=== PATIENT | female | born 1940 | race Caucasian/White ===

== ENCOUNTER 2018-07-26 20:27 | Inpatient (IN) | payer MEDICARE, MEDICAID ==
[~2018-07-26] VITALS: Ht 160 cm; Wt 70.6 kg
[2018-07-26] MEDS ORDERED: SODIUM CHLORIDE FLUSH 10ML SYR IVF ONE (20:30)
[2018-07-26] MEDS ORDERED: SODIUM CHLORIDE 0.9% 1,000ML IVBOLUS ONE ×2 (21:00→23:00)
[2018-07-26 21:12] LABS: MEAN CORPUSCULAR HEMOGLOBIN 31.1 pg (27.0-34.8); MEAN CORPUSCULAR HGB CONC 33.7 g/dL (32.4-35.8); MEAN CORPUSCULAR VOLUME 92.5 fL (80-100); MEAN PLATELET VOLUME 7.5 fL (7.4-10.4); PLATELET COUNT 386 x10^3/uL (130-400); RED BLOOD COUNT 4.72 x10^6/uL (3.82-5.3); RED CELL DISTRIBUTION WIDTH 14.1 % (9.6-15.2)
[2018-07-26 21:16] LABS: PROTHROMBIN TIME 10.4 Seconds (9.6-11.5)
[2018-07-26 21:17] LABS: ALANINE AMINOTRANSFERASE 28 U/L (12-78); ALBUMIN 2.8 g/dL (3.4-5.0); ANION GAP 8 mmol/L (5-15); CALCIUM 8.7 mg/dL (8.5-10.1); CHLORIDE 106 mmol/L (98-107); CREATININE 0.95 mg/dL (0.55-1.02)
[2018-07-26 21:20] LABS: ALKALINE PHOSPHATASE 218 U/L (45-117); BILIRUBIN,TOTAL 0.5 mg/dL (0.2-1.0)
[2018-07-26] MEDS ORDERED: ACETAMINOPHEN 325 MG TABLET PO ONE (22:00)
[2018-07-26 22:04] LABS: BASOPHILS # (AUTO) 0.09 x10^3/uL (0-0.1); BASOPHILS % (AUTO) 1 % (0-1); EOSINOPHILS # (AUTO) 0.03 x10^3/uL (0-0.4); EOSINOPHILS % (AUTO) 0 % (1-7); LYMPHOCYTES # (AUTO) 2.65 x10^3/uL (1-3.4); LYMPHOCYTES % (AUTO) 14 % (22-44); MD SCAN; MONOCYTES # (AUTO) 0.72 x10^3/uL (0.2-0.8); MONOCYTES % (AUTO) 4 % (2-9); NEUTROPHILS # (AUTO) 15.06 x10^3/uL (1.8-6.8); NEUTROPHILS % (AUTO) 81 % (42-75)
[2018-07-26] MEDS ORDERED: ACETAMINOPHEN 325 MG TABLET ONE (22:19)
[2018-07-26] MEDS ORDERED: CEFTRIAXONE 1,000 MG in SODIUM CHLORIDE 0.9% 50 ML IV ONE (22:30)
[2018-07-26] MEDS ORDERED: CEFTRIAXONE PMX 1GM/50ML 50 ML ONE (22:56)
[2018-07-26 23:04] LABS: CULTURE INDICATED? YES; MICROSCOPIC INDICATED
[2018-07-26] MEDS ORDERED: SODIUM CHLORIDE 0.9% 1,000 ML IV ONE (23:30)
[2018-07-26] MEDS ORDERED: SODIUM CHLORIDE 0.9% 1,000 ML IV SCH (23:40)
[2018-07-27] VITALS (8 sets, daily range): BP systolic 99–135; BP diastolic 60–83
[2018-07-27] MEDS ORDERED: DEXTROSE 50%, 50ML SYRINGE IVPush PRN
[2018-07-27] MEDS ORDERED: ONDANSETRON 2MG/ML, 2ML IVPush PRN
[2018-07-27] MEDS ORDERED: DEXTROSE 4 GM TAB.CHEW PO PRN
[2018-07-27] MEDS ORDERED: HEPARIN 5,000 UNITS/ML, 1ML SQ SCH
[2018-07-27] MEDS ORDERED: LABETALOL 5MG/ML, 20ML IVPush PRN
[2018-07-27] MEDS ORDERED: GLUCAGON 1 MG IM PRN
[2018-07-27] MEDS ORDERED: BISACODYL 10 MG SUPP PR PRN
[2018-07-27] MEDS ORDERED: PHARMACY MAY ADJ FOR RENAL FX MC SCH
[2018-07-27] MEDS ORDERED: METRONIDAZOLE PMX 500MG/100ML 100 ML IV SCH (01:00)
[2018-07-27] MEDS ORDERED: DILTIAZEM 30 MG TABLET ONE ×2 (01:02→08:47)
[2018-07-27] MEDS: SODIUM CHLORIDE FLUSH 10ML SYR IVF SCH ×3 (01:10→21:22)
[2018-07-27] MEDS: DILTIAZEM 60 MG TABLET PO SCH ×4 (01:11→21:21)
[2018-07-27] MEDS ORDERED: CITA20TA9 PO (01:53)
[2018-07-27] MEDS ORDERED: CARB1TAB47 PO (01:53)
[2018-07-27] MEDS ORDERED: CHOL200059 PO (01:53)
[2018-07-27] MEDS ORDERED: ALEN70TA3 PO (01:53)
[2018-07-27] MEDS ORDERED: CYAN500L4 PO (01:53)
[2018-07-27] MEDS ORDERED: CALC500T PO (01:53)
[2018-07-27] MEDS ORDERED: GEMF600T PO (01:53)
[2018-07-27] MEDS ORDERED: ACET325C5 PO (01:53)
[2018-07-27] MEDS ORDERED: METF500T PO (01:53)
[2018-07-27] MEDS ORDERED: GABA300C10 PO (01:53)
[2018-07-27] MEDS ORDERED: OMEP20CA14 PO (01:53)
[2018-07-27] MEDS ORDERED: TEMPLATE NON-FORMULARY MED. (Gabapentin** 300 MG) PO SCH (04:00)
[2018-07-27] MEDS: CARBIDOPA/LEVODOPA 25 MG/100 MG TABLET PO SCH ×4 (04:20→21:21)
[2018-07-27 05:41] LABS: MEAN CORPUSCULAR HEMOGLOBIN 30.7 pg (27.0-34.8); MEAN CORPUSCULAR HGB CONC 33.2 g/dL (32.4-35.8); MEAN CORPUSCULAR VOLUME 92.3 fL (80-100); MEAN PLATELET VOLUME 7.7 fL (7.4-10.4); PLATELET COUNT 310 x10^3/uL (130-400); RED BLOOD COUNT 4.68 x10^6/uL (3.82-5.3); RED CELL DISTRIBUTION WIDTH 14.4 % (9.6-15.2)
[2018-07-27 05:46] LABS: ANION GAP 9 mmol/L (5-15); CALCIUM 7.8 mg/dL (8.5-10.1); CHLORIDE 110 mmol/L (98-107)
[2018-07-27 05:47] LABS: CREATININE 1.01 mg/dL (0.55-1.02)
[2018-07-27] MEDS ORDERED: ACETAMINOPHEN 325 MG TABLET PO PRN ×2 (06:00→11:30)
[2018-07-27 06:25] LABS: MD YES
[2018-07-27 06:28] LABS: <PLATELET ESTIMATE> ADEQUATE; <PLT MORPHOLOGY> NORMAL PLT MORPH; <RBC MORPHOLOGY> NORMAL; BAND#(MANUAL) 2.49 x10^3/uL; BANDS%(MANUAL) 10 % (0-7); LYMPH#(MANUAL) 3.98 x10^3/uL (1-3.4); LYMPHS% (MANUAL) 16 % (22-44); MONOS% (MANUAL) 4 % (2-9); SEG#(MANUAL) 17.43 x10^3/uL (1.8-6.8); SEGS% (MANUAL) 70 % (42-75)
[2018-07-27] MEDS: GEMFIBROZIL 600 MG TABLET PO SCH ×2 (07:30→16:30)
[2018-07-27] MEDS: SODIUM CHLORIDE 0.45% 1,000 ML IV SCH ×3 (07:30→22:35)
[2018-07-27] MEDS: OMEPRAZOLE 20 MG CAPSULE.DR PO SCH (09:00)
[2018-07-27] MEDS: CYANOCOBALAMIN 1,000 MCG TABLET PO SCH (09:00)
[2018-07-27] MEDS: GABAPENTIN 300 MG CAPSULE PO SCH ×3 (09:00→21:21)
[2018-07-27] MEDS: CHOLECALCIFEROL 1,000 UNIT TABLET PO SCH (09:00)
[2018-07-27] MEDS ORDERED: SODIUM CHLORIDE 0.9% 1,000ML IVBOLUS ONE (09:00)
[2018-07-27] MEDS ORDERED: PROPOFOL 10 MG/ML, 20ML ONE (10:53)
[2018-07-27] MEDS ORDERED: PHENYLEPHRINE 10 MG/ML ONE (10:53)
[2018-07-27] MEDS ORDERED: SUCCINYLCHOLINE 20 MG/ML, 10ML ONE (10:53)
[2018-07-27] MEDS ORDERED: ROCURONIUM 10 MG/ML,10ML ONE (10:53)
[2018-07-27] MEDS ORDERED: FENTANYL PF 100 MCG/2ML ONE (11:17)
[2018-07-27] MEDS ORDERED: OXYcodone 5 MG/5 ML ORAL.SOL UDC PO PRN (11:30)
[2018-07-27] MEDS ORDERED: METOPROLOL 1 MG/ML, 5ML IV PRN (11:30)
[2018-07-27] MEDS ORDERED: FENTANYL PF 100 MCG/2ML IV PRN (11:30)
[2018-07-27] MEDS ORDERED: PROMETHAZINE 12.5 MG SUPP PR PRN (11:30)
[2018-07-27] MEDS ORDERED: MEPERIDINE/PF 25MG/0.5ML IVPush PRN (11:30)
[2018-07-27] MEDS ORDERED: KETOROLAC 30 MG/1 ML IV PRN (11:30)
[2018-07-27] MEDS ORDERED: ALBUTEROL SULFATE 2.5 MG/3 ML NPPB PRN (11:30)
[2018-07-27] MEDS ORDERED: hydrALAzine 20 MG/ML, 1ML IV PRN (11:30)
[2018-07-27] MEDS ORDERED: HYDROmorphone 1 MG/ML, 1ML IV PRN (11:30)
[2018-07-27] MEDS ORDERED: MIDAZOLAM 1 MG/ML, 2ML IV PRN (11:30)
[2018-07-27] MEDS ORDERED: LABETALOL 5MG/ML, 20ML IV PRN (11:30)
[2018-07-27] MEDS ORDERED: PROMETHAZINE 25 MG/ML, 1ML IV PRN (11:30)
[2018-07-27] MEDS ORDERED: EPHEDRINE 50 MG/ML, 1ML IVPush PRN (11:30)
[2018-07-27] MEDS ORDERED: MORPHINE SULFATE 4 MG/ML, 1ML IVPush PRN (11:30)
[2018-07-27] MEDS ORDERED: OMNIPAQUE 350 MG/ML, 50 ML BOTTLE ONE (11:59)
[2018-07-27] MEDS: ACETAMINOPHEN 325 MG TABLET PO PRN (21:21)
[2018-07-27] MEDS: CEFTRIAXONE 2 GM in SODIUM CHLORIDE 0.9% 50 ML IV SCH (22:35)
[2018-07-28 00:58] VITALS: BP 108/67
[2018-07-28 04:57] LABS: MEAN CORPUSCULAR HEMOGLOBIN 30.4 pg (27.0-34.8); MEAN CORPUSCULAR HGB CONC 32.6 g/dL (32.4-35.8); MEAN CORPUSCULAR VOLUME 93.3 fL (80-100); MEAN PLATELET VOLUME 7.6 fL (7.4-10.4); PLATELET COUNT 306 x10^3/uL (130-400); RED BLOOD COUNT 3.67 x10^6/uL (3.82-5.3); RED CELL DISTRIBUTION WIDTH 14.4 % (9.6-15.2)
[2018-07-28 05:16] LABS: ALANINE AMINOTRANSFERASE 7 U/L (12-78); ALBUMIN 1.9 g/dL (3.4-5.0); ANION GAP 10 mmol/L (5-15); CALCIUM 7.3 mg/dL (8.5-10.1); CHLORIDE 110 mmol/L (98-107)
[2018-07-28 05:18] LABS: ALKALINE PHOSPHATASE 121 U/L (45-117); BILIRUBIN,TOTAL 0.2 mg/dL (0.2-1.0); TOTAL PROTEIN 5.8 g/dL (6.4-8.2)
[2018-07-28 05:24] LABS: BASOPHILS # (AUTO) 0.08 x10^3/uL (0-0.1); BASOPHILS % (AUTO) 0 % (0-1); EOSINOPHILS # (AUTO) 0.21 x10^3/uL (0-0.4); EOSINOPHILS % (AUTO) 1 % (1-7); LYMPHOCYTES % (AUTO) 18 % (22-44); MD SCAN; MONOCYTES # (AUTO) 1.82 x10^3/uL (0.2-0.8); MONOCYTES % (AUTO) 9 % (2-9); NEUTROPHILS # (AUTO) 15.21 x10^3/uL (1.8-6.8); NEUTROPHILS % (AUTO) 72 % (42-75)
[2018-07-28] MEDS: SODIUM CHLORIDE 0.45% 1,000 ML IV SCH ×3 (06:21→15:50)
[2018-07-28] MEDS ORDERED: MAGNESIUM SULFATE PMX 2GM/50ML 50 ML IV ONE (08:30)
[2018-07-28] MEDS: SODIUM CHLORIDE FLUSH 10ML SYR IVF SCH ×2 (09:00→21:00)
[2018-07-28] MEDS: OMEPRAZOLE 20 MG CAPSULE.DR PO SCH (09:15)
[2018-07-28] MEDS: CARBIDOPA/LEVODOPA 25 MG/100 MG TABLET PO SCH ×3 (09:16→21:47)
[2018-07-28] MEDS: CHOLECALCIFEROL 1,000 UNIT TABLET PO SCH (09:16)
[2018-07-28] MEDS: GEMFIBROZIL 600 MG TABLET PO SCH ×2 (09:16→15:50)
[2018-07-28] MEDS: CYANOCOBALAMIN 1,000 MCG TABLET PO SCH (09:16)
[2018-07-28] MEDS: GABAPENTIN 300 MG CAPSULE PO SCH ×3 (09:16→21:46)
[2018-07-28 09:28] VITALS: BP 116/73
[2018-07-28] MEDS ORDERED: POTASSIUM CHLORIDE 20 MEQ TAB.ER.PRT PO ONE (11:30)
[2018-07-28 12:24] VITALS: BP 100/59
[2018-07-28 19:14] VITALS: BP 116/58
[2018-07-28] MEDS: CEFTRIAXONE 2 GM in SODIUM CHLORIDE 0.9% 50 ML IV SCH (22:21)
[2018-07-29] MEDS: SODIUM CHLORIDE 0.45% 1,000 ML IV SCH ×3 (00:57→12:35)
[2018-07-29 03:36] VITALS: BP 115/68
[2018-07-29 05:15] LABS: ALBUMIN 1.9 g/dL (3.4-5.0); ANION GAP 10 mmol/L (5-15); CALCIUM 7.6 mg/dL (8.5-10.1); CHLORIDE 110 mmol/L (98-107)
[2018-07-29 05:19] LABS: ALKALINE PHOSPHATASE 114 U/L (45-117); BILIRUBIN,TOTAL 0.2 mg/dL (0.2-1.0); CREATININE 1.06 mg/dL (0.55-1.02)
[2018-07-29 05:26] LABS: MEAN CORPUSCULAR HEMOGLOBIN 31.3 pg (27.0-34.8); MEAN CORPUSCULAR HGB CONC 33.5 g/dL (32.4-35.8); MEAN CORPUSCULAR VOLUME 93.5 fL (80-100); MEAN PLATELET VOLUME 7.8 fL (7.4-10.4); PLATELET COUNT 288 x10^3/uL (130-400); RED BLOOD COUNT 3.71 x10^6/uL (3.82-5.3); RED CELL DISTRIBUTION WIDTH 14.6 % (9.6-15.2)
[2018-07-29 05:38] LABS: ALANINE AMINOTRANSFERASE < 6 U/L (12-78)
[2018-07-29 06:21] LABS: BASOPHILS # (AUTO) 0.23 x10^3/uL (0-0.1); BASOPHILS % (AUTO) 2 % (0-1); EOSINOPHILS # (AUTO) 0.17 x10^3/uL (0-0.4); EOSINOPHILS % (AUTO) 1 % (1-7); LYMPHOCYTES # (AUTO) 3.39 x10^3/uL (1-3.4); LYMPHOCYTES % (AUTO) 27 % (22-44); MD SCAN; MONOCYTES # (AUTO) 1.66 x10^3/uL (0.2-0.8); MONOCYTES % (AUTO) 13 % (2-9); NEUTROPHILS # (AUTO) 7.24 x10^3/uL (1.8-6.8); NEUTROPHILS % (AUTO) 57 % (42-75)
[2018-07-29] MEDS ORDERED: SODIUM PHOSPHATE 30 MMOL in SODIUM CHLORIDE 0.45% 500 ML IV ONE (07:30)
[2018-07-29] MEDS ORDERED: SODIUM CHLORIDE 0.45% IV ONE (07:30)
[2018-07-29] MEDS ORDERED: SODIUM PHOSPHATE 4 MEQ/ML IV SCH (07:30)
[2018-07-29] MEDS ORDERED: SODIUM PHOSPHATE IV ONE (07:30)
[2018-07-29] MEDS ORDERED: SODIUM PHOSPHATE 30 MMOL in SODIUM CHLORIDE 0.9% 500 ML IV ONE (08:00)
[2018-07-29] MEDS: CYANOCOBALAMIN 1,000 MCG TABLET PO SCH (08:40)
[2018-07-29] MEDS: GABAPENTIN 300 MG CAPSULE PO SCH ×3 (08:40→20:18)
[2018-07-29] MEDS: OMEPRAZOLE 20 MG CAPSULE.DR PO SCH (08:40)
[2018-07-29] MEDS: CARBIDOPA/LEVODOPA 25 MG/100 MG TABLET PO SCH ×3 (08:40→20:18)
[2018-07-29] MEDS: CHOLECALCIFEROL 1,000 UNIT TABLET PO SCH (08:40)
[2018-07-29] MEDS: SODIUM CHLORIDE FLUSH 10ML SYR IVF SCH ×2 (08:41→20:19)
[2018-07-29] MEDS: GEMFIBROZIL 600 MG TABLET PO SCH (08:42)
[2018-07-29] MEDS: ACETAMINOPHEN 325 MG TABLET PO PRN (08:48)
[2018-07-29 08:58] VITALS: BP 115/74
[2018-07-29 15:51] VITALS: BP 100/65
[2018-07-29] MEDS: INSULIN LISPRO 100 UNITS/ML, PEN SQ-INSULIN SCH ×2 (16:59→20:34)
[2018-07-29 18:53] LABS: FOLATE LEVEL 2.6 ng/mL (3.1-17.5); FREE T4 (FREE THYROXINE) 1.08 ng/dL (0.76-1.46)
[2018-07-29 19:10] VITALS: BP 104/66
[2018-07-29] MEDS: CEFTRIAXONE 2 GM in SODIUM CHLORIDE 0.9% 50 ML IV SCH (21:49)
[2018-07-30] MEDS: SODIUM CHLORIDE 0.45% 1,000 ML IV SCH ×2 (00:01→16:23)
[2018-07-30 00:26] VITALS: BP 110/64
[2018-07-30 05:14] LABS: BASOPHILS # (AUTO) 0.02 x10^3/uL (0-0.1); BASOPHILS % (AUTO) 0 % (0-1); EOSINOPHILS % (AUTO) 1 % (1-7); LYMPHOCYTES # (AUTO) 2.62 x10^3/uL (1-3.4); LYMPHOCYTES % (AUTO) 32 % (22-44); MD NO; MEAN CORPUSCULAR HEMOGLOBIN 30.5 pg (27.0-34.8); MEAN CORPUSCULAR HGB CONC 32.8 g/dL (32.4-35.8); MEAN CORPUSCULAR VOLUME 92.8 fL (80-100); MEAN PLATELET VOLUME 7.9 fL (7.4-10.4); MONOCYTES # (AUTO) 0.63 x10^3/uL (0.2-0.8); MONOCYTES % (AUTO) 8 % (2-9); NEUTROPHILS # (AUTO) 4.82 x10^3/uL (1.8-6.8); NEUTROPHILS % (AUTO) 59 % (42-75); PLATELET COUNT 296 x10^3/uL (130-400); RED BLOOD COUNT 4.11 x10^6/uL (3.82-5.3); RED CELL DISTRIBUTION WIDTH 15.3 % (9.6-15.2)
[2018-07-30 05:27] LABS: CALCIUM 7.3 mg/dL (8.5-10.1); CHLORIDE 115 mmol/L (98-107)
[2018-07-30 05:33] LABS: ALANINE AMINOTRANSFERASE < 6 U/L (12-78); ALBUMIN 1.8 g/dL (3.4-5.0); ALKALINE PHOSPHATASE 144 U/L (45-117); ANION GAP 8 mmol/L (5-15); BILIRUBIN,TOTAL 0.2 mg/dL (0.2-1.0); CREATININE 0.65 mg/dL (0.55-1.02); TOTAL PROTEIN 5.7 g/dL (6.4-8.2)
[2018-07-30] MEDS: INSULIN LISPRO 100 UNITS/ML, PEN SQ-INSULIN SCH ×4 (07:00→22:41)
[2018-07-30] MEDS ORDERED: MAGNESIUM SULFATE PMX 2GM/50ML 50 ML IV ONE (07:30)
[2018-07-30 07:35] VITALS: BP 93/59
[2018-07-30] MEDS: SODIUM CHLORIDE FLUSH 10ML SYR IVF SCH ×2 (10:33→22:40)
[2018-07-30] MEDS: GABAPENTIN 300 MG CAPSULE PO SCH ×3 (11:02→22:40)
[2018-07-30] MEDS: CYANOCOBALAMIN 1,000 MCG TABLET PO SCH (11:02)
[2018-07-30] MEDS: CARBIDOPA/LEVODOPA 25 MG/100 MG TABLET PO SCH ×3 (11:02→22:40)
[2018-07-30] MEDS: NEUTRA PHOS K 250 MG TABLET PO SCH ×2 (11:02→22:40)
[2018-07-30] MEDS: OMEPRAZOLE 20 MG CAPSULE.DR PO SCH (11:02)
[2018-07-30] MEDS: CHOLECALCIFEROL 1,000 UNIT TABLET PO SCH (11:03)
[2018-07-30 13:26] VITALS: BP 102/66
[2018-07-30] MEDS ORDERED: ONDANSETRON 4 MG TABLET ONE (16:07)
[2018-07-30] MEDS: ACETAMINOPHEN 325 MG TABLET PO PRN (16:14)
[2018-07-30 20:17] VITALS: BP 97/62
[2018-07-30] MEDS: CEFTRIAXONE 2 GM in SODIUM CHLORIDE 0.9% 50 ML IV SCH (22:39)
[2018-07-31 01:33] VITALS: BP 110/73
[2018-07-31] MEDS: SODIUM CHLORIDE 0.45% 1,000 ML IV SCH (02:18)
[2018-07-31 06:14] LABS: ALBUMIN 1.9 g/dL (3.4-5.0); ANION GAP 9 mmol/L (5-15); CALCIUM 7.7 mg/dL (8.5-10.1); CHLORIDE 112 mmol/L (98-107)
[2018-07-31 06:18] LABS: ALKALINE PHOSPHATASE 203 U/L (45-117); BILIRUBIN,TOTAL 0.2 mg/dL (0.2-1.0); CREATININE 0.66 mg/dL (0.55-1.02); TOTAL PROTEIN 6.8 g/dL (6.4-8.2)
[2018-07-31 06:19] LABS: ALANINE AMINOTRANSFERASE < 6 U/L (12-78)
[2018-07-31] MEDS ORDERED: CEFTRIAXONE 2 GM in SODIUM CHLORIDE 0.9% 50 ML IV SCH (06:30)
[2018-07-31] MEDS: INSULIN LISPRO 100 UNITS/ML, PEN SQ-INSULIN SCH ×2 (07:00→12:38)
[2018-07-31 07:10] LABS: BASOPHILS # (AUTO) 0.06 x10^3/uL (0-0.1); BASOPHILS % (AUTO) 1 % (0-1); EOSINOPHILS # (AUTO) 0.12 x10^3/uL (0-0.4); EOSINOPHILS % (AUTO) 1 % (1-7); LYMPHOCYTES # (AUTO) 3.39 x10^3/uL (1-3.4); LYMPHOCYTES % (AUTO) 39 % (22-44); MD NO; MEAN CORPUSCULAR HEMOGLOBIN 30.3 pg (27.0-34.8); MEAN CORPUSCULAR HGB CONC 33.2 g/dL (32.4-35.8); MEAN CORPUSCULAR VOLUME 91.4 fL (80-100); MEAN PLATELET VOLUME 7.7 fL (7.4-10.4); MONOCYTES # (AUTO) 0.78 x10^3/uL (0.2-0.8); MONOCYTES % (AUTO) 9 % (2-9); NEUTROPHILS # (AUTO) 4.45 x10^3/uL (1.8-6.8); NEUTROPHILS % (AUTO) 51 % (42-75); PLATELET COUNT 324 x10^3/uL (130-400); RED BLOOD COUNT 4.06 x10^6/uL (3.82-5.3); RED CELL DISTRIBUTION WIDTH 14.4 % (9.6-15.2)
[2018-07-31 08:00] VITALS: BP 119/74
[2018-07-31] MEDS: CARBIDOPA/LEVODOPA 25 MG/100 MG TABLET PO SCH ×2 (08:26→16:41)
[2018-07-31] MEDS: OMEPRAZOLE 20 MG CAPSULE.DR PO SCH (08:26)
[2018-07-31] MEDS: CYANOCOBALAMIN 1,000 MCG TABLET PO SCH (08:27)
[2018-07-31] MEDS: NEUTRA PHOS K 250 MG TABLET PO SCH (08:27)
[2018-07-31] MEDS: CHOLECALCIFEROL 1,000 UNIT TABLET PO SCH (08:27)
[2018-07-31] MEDS: GABAPENTIN 300 MG CAPSULE PO SCH ×2 (08:27→16:41)
[2018-07-31] MEDS: SODIUM CHLORIDE FLUSH 10ML SYR IVF SCH (08:30)
[2018-07-31] MEDS ORDERED: CEFD300C37 PO (10:17)
[2018-07-31 14:00] VITALS: BP 110/67
== END 2018-07-31 17:14 | DRG 853 ==
LOC: ED 23:40 → EDIP 23:56 → 5SO 07-27 00:36 → 3NE 07-29 17:47
PROVIDERS: ADMIT Family Medicine; ATTEND Family Medicine
PROC: 0T9B70Z Drainage of Bladder with Drainage Device, Via Natural or Artificial Opening (ICD-10-PCS; 2018-07-26)
PROC: 0T778DZ Dilation of Left Ureter with Intraluminal Device, Via Natural or Artificial Opening Endoscopic (ICD-10-PCS; 2018-07-27)
PROC: BT1F1ZZ Fluoroscopy of Left Kidney, Ureter and Bladder using Low Osmolar Contrast (ICD-10-PCS; 2018-07-27)
PROC: 0TC78ZZ Extirpation of Matter from Left Ureter, Via Natural or Artificial Opening Endoscopic (ICD-10-PCS; principal; 2018-07-27 10:45)
DX: A41.9 Sepsis, unspecified organism (principal); E43 Unspecified severe protein-calorie malnutrition; E87.2 Acidosis; I47.1 Supraventricular tachycardia; N13.6 Pyonephrosis; R65.20 Severe sepsis without septic shock; B96.89 Other specified bacterial agents as the cause of diseases classified elsewhere; E11.40 Type 2 diabetes mellitus with diabetic neuropathy, unspecified; Z68.27 Body mass index [BMI] 27.0-27.9, adult; E78.00 Pure hypercholesterolemia, unspecified; E78.5 Hyperlipidemia, unspecified; F02.80 Dementia in other diseases classified elsewhere, unspecified severity, without behavioral disturbance, psychotic disturbance, mood disturbance, and anxiety; G20 Parkinson's disease; I10 Essential (primary) hypertension; M81.0 Age-related osteoporosis without current pathological fracture; B96.20 Unspecified Escherichia coli [E. coli] as the cause of diseases classified elsewhere
CPT/HCPCS: 36415; 70450; 71045; 74176; 74420; 76770; 80048; 80053; 81001; 82140; 82360; 82607; 82746; 82962; 83605; 83735; 84100; 84145; 84439; 84443; 85025; 85610; 85730; 87040; 87077; 87086; 87186; 88300; 93005; 96361; 96365; 96366; G0378; J0696; J1644; J2405; J2704; J3010; Q9967; C2617; J0330; J1815; J2370; J3475; J7030; J7040

== ENCOUNTER 2018-08-13 19:48 | Inpatient (IN) | payer MEDICARE, MEDICAID ==
[~2018-08-13] VITALS: Ht 157.5 cm; Wt 75.3 kg
[~2018-08-13 19:48] MED LIST: ACET325C5 PO; ALEN70TA3 PO; CALC500T PO; CARB1TAB47 PO; CEFD300C37 PO; CHOL200059 PO; CITA20TA9 PO; CYAN500L4 PO; GABA300C10 PO; GEMF600T PO; METF500T PO; OMEP20CA14 PO
[2018-08-13] MEDS ORDERED: CEFTRIAXONE PMX 1GM/50ML 50 ML ONE (20:25)
[2018-08-13] MEDS ORDERED: PLEASE ENTER HEIGHT AND WEIGHT MC SCH (20:30)
[2018-08-13] MEDS ORDERED: ACETAMINOPHEN 500 MG TABLET PO ONE (20:30)
[2018-08-13] MEDS ORDERED: VANCOMYCIN 1,500 MG in SODIUM CHLORIDE 0.9% 250 ML IV ONE (20:30)
[2018-08-13] MEDS ORDERED: CEFTRIAXONE 1,000 MG in SODIUM CHLORIDE 0.9% 50 ML IVPB ONE (20:30)
[2018-08-13] MEDS ORDERED: VANCOMYCIN PER PHARMACY IV ONE (20:30)
[2018-08-13] MEDS ORDERED: SODIUM CHLORIDE 0.9% 1,000ML IVBOLUS ONE ×2 (20:30→22:00)
[2018-08-13 20:31] LABS: MEAN CORPUSCULAR HGB CONC 33.5 g/dL (32.4-35.8); MEAN CORPUSCULAR VOLUME 92.5 fL (80-100); MEAN PLATELET VOLUME 7.7 fL (7.4-10.4); PLATELET COUNT 382 x10^3/uL (130-400); RED BLOOD COUNT 3.61 x10^6/uL (3.82-5.3)
[2018-08-13 20:37] LABS: INTERNATIONAL NORMALIZED RATIO 1.09 (0.93-1.1); PROTHROMBIN TIME 11.3 Seconds (9.6-11.5)
[2018-08-13 20:41] LABS: ALANINE AMINOTRANSFERASE 9 U/L (12-78); ALBUMIN 2.1 g/dL (3.4-5.0); ANION GAP 10 mmol/L (5-15); CALCIUM 7.6 mg/dL (8.5-10.1); CHLORIDE 108 mmol/L (98-107); CREATININE 1.71 mg/dL (0.55-1.02)
[2018-08-13] MEDS ORDERED: ACETAMINOPHEN 650 MG SUPP ONE (20:44)
[2018-08-13 20:45] LABS: ALKALINE PHOSPHATASE 109 U/L (45-117); BILIRUBIN,TOTAL 0.4 mg/dL (0.2-1.0); TOTAL PROTEIN 6.8 g/dL (6.4-8.2); TROPONIN I < 0.015 ng/mL (0.000-0.045)
[2018-08-13 20:58] LABS: MICROSCOPIC INDICATED
[2018-08-13 21:01] LABS: CULTURE INDICATED? YES
[2018-08-13] MEDS ORDERED: ACETAMINOPHEN 650 MG SUPP PR STA (21:08)
[2018-08-13 21:12] LABS: BASOPHILS # (AUTO) 0.04 x10^3/uL (0-0.1); BASOPHILS % (AUTO) 0 % (0-1); EOSINOPHILS # (AUTO) 0.01 x10^3/uL (0-0.4); EOSINOPHILS % (AUTO) 0 % (1-7); LYMPHOCYTES # (AUTO) 1.98 x10^3/uL (1-3.4); LYMPHOCYTES % (AUTO) 9 % (22-44); MD SCAN; MONOCYTES # (AUTO) 2.21 x10^3/uL (0.2-0.8); MONOCYTES % (AUTO) 10 % (2-9); NEUTROPHILS # (AUTO) 18.59 x10^3/uL (1.8-6.8); NEUTROPHILS % (AUTO) 82 % (42-75)
[2018-08-13] MEDS ORDERED: ACETAMINOPHEN 325 MG SUPP ONE (21:13)
[2018-08-13] MEDS: NOREPINEPHRINE 4 MG in SODIUM CHLORIDE 0.9% 246 ML IV PRN (22:10)
[2018-08-13] MEDS ORDERED: SODIUM CHLORIDE 0.9% 1,000 ML IV ONE (23:20)
[2018-08-13] MEDS ORDERED: OXYcodone IR 5MG TABLET PO PRN (23:30)
[2018-08-13] MEDS: HEPARIN 5,000 UNITS/ML, 1ML SQ SCH (23:30)
[2018-08-13] MEDS ORDERED: hydrALAzine 20 MG/ML, 1ML IVPush PRN (23:30)
[2018-08-13] MEDS ORDERED: ACETAMINOPHEN 325 MG TABLET PO PRN (23:30)
[2018-08-13] MEDS ORDERED: ONDANSETRON ODT 4 MG PO PRN (23:30)
[2018-08-13] MEDS ORDERED: VANCOMYCIN PER PHARMACY MC PRN (23:30)
[2018-08-13] MEDS ORDERED: DOCUSATE 100 MG CAPSULE PO PRN (23:30)
[2018-08-13] MEDS ORDERED: PROMETHAZINE 25 MG/ML, 1ML IM PRN (23:30)
[2018-08-13] MEDS ORDERED: ONDANSETRON 2MG/ML, 2ML IVPush PRN (23:30)
[2018-08-13] MEDS ORDERED: BISACODYL 10 MG SUPP PR PRN (23:30)
[2018-08-13] MEDS ORDERED: POLYETHYLENE GLYCOL 17 GM PACKET PO PRN (23:30)
[2018-08-13] MEDS ORDERED: LABETALOL 5MG/ML, 20ML IVPush PRN (23:30)
[2018-08-13 23:59] LABS: HEMOGLOBIN A1C 6.5 % (4.2-6.3)
[2018-08-14 00:01] LABS: FREE T4 (FREE THYROXINE) 1.12 ng/dL (0.76-1.46); THYROID STIMULATING HORMONE 1.97 mIU/L (0.358-3.740)
[2018-08-14] MEDS: ERTAPENEM 1 GM in SODIUM CHLORIDE 0.9% 50 ML IV SCH ×2 (01:18→23:56)
[2018-08-14] MEDS: SODIUM CHLORIDE 0.9% 1,000 ML IV SCH ×4 (01:19→16:49)
[2018-08-14] MEDS: INSULIN LISPRO 100 UNITS/ML, PEN SQ-INSULIN SCH ×5 (01:22→21:00)
[2018-08-14] MEDS ORDERED: PHARMACOKINETIC CONSULTATION MC ONE (04:30)
[2018-08-14] MEDS ORDERED: PHARMACOKINETIC MONITORING MC PRN (04:30)
[2018-08-14 05:44] LABS: MEAN CORPUSCULAR HEMOGLOBIN 31.2 pg (27.0-34.8); MEAN CORPUSCULAR HGB CONC 33.2 g/dL (32.4-35.8); MEAN CORPUSCULAR VOLUME 93.9 fL (80-100); MEAN PLATELET VOLUME 7.7 fL (7.4-10.4); PLATELET COUNT 400 x10^3/uL (130-400); RED BLOOD COUNT 3.68 x10^6/uL (3.82-5.3); RED CELL DISTRIBUTION WIDTH 15.1 % (9.6-15.2)
[2018-08-14 05:48] LABS: CHLORIDE 116 mmol/L (98-107)
[2018-08-14 05:57] LABS: ALANINE AMINOTRANSFERASE 10 U/L (12-78); ALBUMIN 1.9 g/dL (3.4-5.0); ALKALINE PHOSPHATASE 104 U/L (45-117); ANION GAP 9 mmol/L (5-15); BILIRUBIN,TOTAL 0.4 mg/dL (0.2-1.0); CALCIUM 6.5 mg/dL (8.5-10.1); CHOL/HDL RATIO 2.8; CHOLESTEROL, TOTAL 117 mg/dL (140-239); CREATININE 1.09 mg/dL (0.55-1.02); HDL CHOL % 36 % (28-40); HDL CHOLESTEROL (DIRECT) 42 mg/dL (40-60); LDL CHOLESTEROL,CALCULATED 50 mg/dL (54-169); LDL/HDL RATIO 1.2 (0.5-3.0); TOTAL PROTEIN 6.5 g/dL (6.4-8.2); TRIGLYCERIDES 124 mg/dL (50-200); VLDL CHOLESTEROL 25 mg/dL (0-25)
[2018-08-14] MEDS: CALCIUM CARBONATE 500 MG TAB.CHEW PO SCH (06:00)
[2018-08-14] MEDS: ACETAMINOPHEN 325 MG TABLET PO SCH ×4 (06:00→21:36)
[2018-08-14 06:10] LABS: MD YES
[2018-08-14 06:14] LABS: BAND#(MANUAL) 3.67 x10^3/uL; BANDS%(MANUAL) 13 % (0-7); LYMPH#(MANUAL) 0.56 x10^3/uL (1-3.4); LYMPHS% (MANUAL) 2 % (22-44); METAMYELOCYTES# (MANUAL) 0.28 x10^3/uL (0-0); METAMYELOCYTES% (MANUAL) 1 % (0-1); MONOS#(MANUAL) 1.69 x10^3/uL (0.3-2.7); MONOS% (MANUAL) 6 % (2-9); SEGS% (MANUAL) 78 % (42-75)
[2018-08-14 06:16] LABS: <PLATELET ESTIMATE> ADEQUATE; <PLT MORPHOLOGY> NORMAL PLT MORPH; <RBC MORPHOLOGY> NORMAL
[2018-08-14] MEDS ORDERED: POTASSIUM CHLORIDE 20 MEQ TAB.ER.PRT PO ONE (07:30)
[2018-08-14] MEDS: OMEPRAZOLE 20 MG CAPSULE.DR PO SCH (08:10)
[2018-08-14] MEDS: CHOLECALCIFEROL 1,000 UNIT TABLET PO SCH (08:10)
[2018-08-14] MEDS: GEMFIBROZIL 600 MG TABLET PO SCH ×2 (08:11→16:41)
[2018-08-14] MEDS: CARBIDOPA/LEVODOPA 25 MG/100 MG TABLET PO SCH ×4 (08:11→21:36)
[2018-08-14] MEDS: CYANOCOBALAMIN 1,000 MCG TABLET PO SCH (08:11)
[2018-08-14] MEDS: CITALOPRAM 20 MG TABLET PO SCH (08:11)
[2018-08-14] MEDS: GABAPENTIN 300 MG CAPSULE PO SCH ×4 (08:11→21:36)
[2018-08-14] MEDS: HEPARIN 5,000 UNITS/ML, 1ML SQ SCH ×3 (08:14→23:56)
[2018-08-14] MEDS ORDERED: FAMOTIDINE 20 MG/2 ML IVPush SCH (09:00)
[2018-08-14] MEDS: NOREPINEPHRINE 4 MG in SODIUM CHLORIDE 0.9% 246 ML IV PRN (15:29)
[2018-08-15] MEDS: SODIUM CHLORIDE 0.9% 1,000 ML IV SCH ×3 (02:00→23:06)
[2018-08-15 04:49] LABS: MEAN CORPUSCULAR HEMOGLOBIN 31.5 pg (27.0-34.8); MEAN CORPUSCULAR HGB CONC 33.2 g/dL (32.4-35.8); MEAN CORPUSCULAR VOLUME 94.7 fL (80-100); MEAN PLATELET VOLUME 7.5 fL (7.4-10.4); PLATELET COUNT 368 x10^3/uL (130-400); RED CELL DISTRIBUTION WIDTH 15.8 % (9.6-15.2)
[2018-08-15 04:58] LABS: ANION GAP 10 mmol/L (5-15); CHLORIDE 113 mmol/L (98-107); CREATININE 0.67 mg/dL (0.55-1.02)
[2018-08-15 05:09] LABS: BASOPHILS # (AUTO) 0.09 x10^3/uL (0-0.1); BASOPHILS % (AUTO) 1 % (0-1); EOSINOPHILS # (AUTO) 0.17 x10^3/uL (0-0.4); EOSINOPHILS % (AUTO) 1 % (1-7); LYMPHOCYTES # (AUTO) 2.78 x10^3/uL (1-3.4); LYMPHOCYTES % (AUTO) 14 % (22-44); MD SCAN; MONOCYTES # (AUTO) 1.05 x10^3/uL (0.2-0.8); MONOCYTES % (AUTO) 5 % (2-9); NEUTROPHILS # (AUTO) 15.54 x10^3/uL (1.8-6.8); NEUTROPHILS % (AUTO) 79 % (42-75)
[2018-08-15] MEDS: ACETAMINOPHEN 325 MG TABLET PO SCH ×4 (06:03→21:12)
[2018-08-15] MEDS: CALCIUM CARBONATE 500 MG TAB.CHEW PO SCH (06:03)
[2018-08-15] MEDS: INSULIN LISPRO 100 UNITS/ML, PEN SQ-INSULIN SCH ×4 (07:00→21:00)
[2018-08-15] MEDS: CHOLECALCIFEROL 1,000 UNIT TABLET PO SCH (08:39)
[2018-08-15] MEDS: CITALOPRAM 20 MG TABLET PO SCH (08:39)
[2018-08-15] MEDS: OMEPRAZOLE 20 MG CAPSULE.DR PO SCH (08:39)
[2018-08-15] MEDS: CYANOCOBALAMIN 1,000 MCG TABLET PO SCH (08:39)
[2018-08-15] MEDS: GEMFIBROZIL 600 MG TABLET PO SCH ×2 (08:39→16:47)
[2018-08-15] MEDS: CARBIDOPA/LEVODOPA 25 MG/100 MG TABLET PO SCH ×3 (08:39→21:12)
[2018-08-15] MEDS: HEPARIN 5,000 UNITS/ML, 1ML SQ SCH ×3 (08:39→23:11)
[2018-08-15] MEDS: GABAPENTIN 300 MG CAPSULE PO SCH ×3 (08:39→21:14)
[2018-08-15] MEDS ORDERED: ERGOCALCIFEROL 50,000 UNIT CAPSULE PO SCH (09:30)
[2018-08-15] MEDS ORDERED: NOREPINEPHRINE 4 MG in SODIUM CHLORIDE 0.9% 246 ML IV PRN (21:30)
[2018-08-15] MEDS: ERTAPENEM 1 GM in SODIUM CHLORIDE 0.9% 50 ML IV SCH (23:07)
[2018-08-16 04:00] VITALS: BP 110/51
[2018-08-16 05:07] LABS: BASOPHILS # (AUTO) 0.08 x10^3/uL (0-0.1); BASOPHILS % (AUTO) 1 % (0-1); EOSINOPHILS # (AUTO) 0.08 x10^3/uL (0-0.4); EOSINOPHILS % (AUTO) 1 % (1-7); LYMPHOCYTES # (AUTO) 2.14 x10^3/uL (1-3.4); LYMPHOCYTES % (AUTO) 23 % (22-44); MD NO; MEAN CORPUSCULAR HEMOGLOBIN 30.3 pg (27.0-34.8); MEAN CORPUSCULAR HGB CONC 32.8 g/dL (32.4-35.8); MEAN CORPUSCULAR VOLUME 92.4 fL (80-100); MEAN PLATELET VOLUME 7.6 fL (7.4-10.4); MONOCYTES # (AUTO) 0.59 x10^3/uL (0.2-0.8); MONOCYTES % (AUTO) 7 % (2-9); NEUTROPHILS # (AUTO) 6.29 x10^3/uL (1.8-6.8); NEUTROPHILS % (AUTO) 69 % (42-75); PLATELET COUNT 378 x10^3/uL (130-400); RED BLOOD COUNT 3.41 x10^6/uL (3.82-5.3); RED CELL DISTRIBUTION WIDTH 15.3 % (9.6-15.2)
[2018-08-16 05:12] LABS: ANION GAP 8 mmol/L (5-15); CALCIUM 7.3 mg/dL (8.5-10.1); CHLORIDE 113 mmol/L (98-107); CREATININE 0.62 mg/dL (0.55-1.02)
[2018-08-16] MEDS: ACETAMINOPHEN 325 MG TABLET PO SCH ×4 (06:08→21:12)
[2018-08-16] MEDS: CALCIUM CARBONATE 500 MG TAB.CHEW PO SCH (06:08)
[2018-08-16] MEDS: INSULIN LISPRO 100 UNITS/ML, PEN SQ-INSULIN SCH ×4 (07:00→21:00)
[2018-08-16] MEDS: CITALOPRAM 20 MG TABLET PO SCH (07:31)
[2018-08-16] MEDS: CYANOCOBALAMIN 1,000 MCG TABLET PO SCH (07:31)
[2018-08-16] MEDS: OMEPRAZOLE 20 MG CAPSULE.DR PO SCH (07:31)
[2018-08-16] MEDS: GABAPENTIN 300 MG CAPSULE PO SCH ×3 (07:31→21:12)
[2018-08-16] MEDS: CARBIDOPA/LEVODOPA 25 MG/100 MG TABLET PO SCH ×3 (07:31→21:12)
[2018-08-16] MEDS: CHOLECALCIFEROL 1,000 UNIT TABLET PO SCH (07:31)
[2018-08-16] MEDS: HEPARIN 5,000 UNITS/ML, 1ML SQ SCH ×2 (07:31→16:15)
[2018-08-16] MEDS: GEMFIBROZIL 600 MG TABLET PO SCH ×2 (07:35→16:14)
[2018-08-16] MEDS: MEROPENEM 1 GM in SODIUM CHLORIDE 0.9% 100 ML IV SCH ×2 (11:04→18:45)
[2018-08-16 14:38] VITALS: BP 116/58
[2018-08-16 19:30] VITALS: BP 112/55
[2018-08-17] MEDS: HEPARIN 5,000 UNITS/ML, 1ML SQ SCH ×3 (00:27→22:50)
[2018-08-17 00:51] VITALS: BP 113/59
[2018-08-17] MEDS: MEROPENEM 1 GM in SODIUM CHLORIDE 0.9% 100 ML IV SCH ×3 (02:45→18:54)
[2018-08-17] MEDS: ACETAMINOPHEN 325 MG TABLET PO SCH ×4 (06:10→22:50)
[2018-08-17] MEDS: CALCIUM CARBONATE 500 MG TAB.CHEW PO SCH (06:10)
[2018-08-17] MEDS: INSULIN LISPRO 100 UNITS/ML, PEN SQ-INSULIN SCH ×4 (07:00→22:40)
[2018-08-17 08:00] VITALS: BP 101/52
[2018-08-17] MEDS: OMEPRAZOLE 20 MG CAPSULE.DR PO SCH (11:22)
[2018-08-17] MEDS: CARBIDOPA/LEVODOPA 25 MG/100 MG TABLET PO SCH ×3 (11:22→22:49)
[2018-08-17] MEDS: GABAPENTIN 300 MG CAPSULE PO SCH ×3 (11:22→22:50)
[2018-08-17] MEDS: CHOLECALCIFEROL 1,000 UNIT TABLET PO SCH (11:22)
[2018-08-17] MEDS: CITALOPRAM 20 MG TABLET PO SCH (11:23)
[2018-08-17] MEDS: CYANOCOBALAMIN 1,000 MCG TABLET PO SCH (11:23)
[2018-08-17] MEDS: GEMFIBROZIL 600 MG TABLET PO SCH ×2 (11:34→16:21)
[2018-08-17 13:56] VITALS: BP 116/72
[2018-08-17 19:56] VITALS: BP 102/52
[2018-08-18 01:07] VITALS: BP 103/61
[2018-08-18] MEDS: MEROPENEM 1 GM in SODIUM CHLORIDE 0.9% 100 ML IV SCH ×3 (02:55→18:27)
[2018-08-18 04:44] LABS: BASOPHILS # (AUTO) 0.05 x10^3/uL (0-0.1); BASOPHILS % (AUTO) 1 % (0-1); EOSINOPHILS # (AUTO) 0.19 x10^3/uL (0-0.4); EOSINOPHILS % (AUTO) 3 % (1-7); LYMPHOCYTES # (AUTO) 3.29 x10^3/uL (1-3.4); LYMPHOCYTES % (AUTO) 42 % (22-44); MD NO; MEAN CORPUSCULAR HEMOGLOBIN 30.7 pg (27.0-34.8); MEAN CORPUSCULAR HGB CONC 33.1 g/dL (32.4-35.8); MEAN CORPUSCULAR VOLUME 92.7 fL (80-100); MEAN PLATELET VOLUME 7.9 fL (7.4-10.4); MONOCYTES % (AUTO) 12 % (2-9); NEUTROPHILS % (AUTO) 43 % (42-75); PLATELET COUNT 341 x10^3/uL (130-400); RED BLOOD COUNT 3.36 x10^6/uL (3.82-5.3); RED CELL DISTRIBUTION WIDTH 15.6 % (9.6-15.2)
[2018-08-18 04:50] LABS: ANION GAP 10 mmol/L (5-15); CALCIUM 8.1 mg/dL (8.5-10.1); CHLORIDE 110 mmol/L (98-107)
[2018-08-18 04:51] LABS: CREATININE 0.71 mg/dL (0.55-1.02)
[2018-08-18] MEDS: CALCIUM CARBONATE 500 MG TAB.CHEW PO SCH (05:28)
[2018-08-18] MEDS: ACETAMINOPHEN 325 MG TABLET PO SCH ×4 (05:28→19:38)
[2018-08-18] MEDS: HEPARIN 5,000 UNITS/ML, 1ML SQ SCH ×3 (06:18→22:54)
[2018-08-18] MEDS: INSULIN LISPRO 100 UNITS/ML, PEN SQ-INSULIN SCH ×4 (07:31→19:33)
[2018-08-18 08:00] VITALS: BP 104/69
[2018-08-18] MEDS: CARBIDOPA/LEVODOPA 25 MG/100 MG TABLET PO SCH ×3 (09:06→19:38)
[2018-08-18] MEDS: CITALOPRAM 20 MG TABLET PO SCH (09:06)
[2018-08-18] MEDS: CYANOCOBALAMIN 1,000 MCG TABLET PO SCH (09:06)
[2018-08-18] MEDS: OMEPRAZOLE 20 MG CAPSULE.DR PO SCH (09:07)
[2018-08-18] MEDS: GABAPENTIN 300 MG CAPSULE PO SCH ×3 (09:07→19:38)
[2018-08-18] MEDS: CHOLECALCIFEROL 1,000 UNIT TABLET PO SCH (09:08)
[2018-08-18] MEDS: GEMFIBROZIL 600 MG TABLET PO SCH ×2 (09:08→17:37)
[2018-08-18 14:30] VITALS: BP 102/65
[2018-08-18 20:12] VITALS: BP 99/48
[2018-08-19] MEDS: MEROPENEM 1 GM in SODIUM CHLORIDE 0.9% 100 ML IV SCH ×2 (02:47→08:58)
[2018-08-19 04:20] VITALS: BP 105/50
[2018-08-19] MEDS: HEPARIN 5,000 UNITS/ML, 1ML SQ SCH ×2 (06:00→14:00)
[2018-08-19] MEDS: CALCIUM CARBONATE 500 MG TAB.CHEW PO SCH (06:00)
[2018-08-19] MEDS: ACETAMINOPHEN 325 MG TABLET PO SCH ×3 (06:00→15:58)
[2018-08-19 06:48] VITALS: BP 109/68
[2018-08-19] MEDS: INSULIN LISPRO 100 UNITS/ML, PEN SQ-INSULIN SCH ×3 (07:00→16:00)
[2018-08-19] MEDS: OMEPRAZOLE 20 MG CAPSULE.DR PO SCH (08:58)
[2018-08-19] MEDS: CITALOPRAM 20 MG TABLET PO SCH (08:58)
[2018-08-19] MEDS: GABAPENTIN 300 MG CAPSULE PO SCH ×2 (08:58→15:58)
[2018-08-19] MEDS: CARBIDOPA/LEVODOPA 25 MG/100 MG TABLET PO SCH ×2 (08:58→15:58)
[2018-08-19] MEDS: CHOLECALCIFEROL 1,000 UNIT TABLET PO SCH (08:58)
[2018-08-19] MEDS: CYANOCOBALAMIN 1,000 MCG TABLET PO SCH (08:58)
[2018-08-19] MEDS: GEMFIBROZIL 600 MG TABLET PO SCH ×2 (09:00→15:58)
[2018-08-19 12:32] VITALS: BP 115/50
[2018-08-19] MEDS ORDERED: DOCU-131 PO (15:27)
[2018-08-19] MEDS ORDERED: MERO1VIA IV (15:27)
== END 2018-08-19 17:23 | DRG 871 ==
LOC: ED 20:40 → EDIP 23:20 → CCU 08-14 00:07 → 3NE 08-16 10:23
PROVIDERS: ADMIT Internal Medicine; ATTEND Internal Medicine
PROC: 0T9B70Z Drainage of Bladder with Drainage Device, Via Natural or Artificial Opening (ICD-10-PCS; principal; 2018-08-13)
PROC: 02H633Z Insertion of Infusion Device into Right Atrium, Percutaneous Approach (ICD-10-PCS; 2018-08-13)
PROC: B244ZZZ Ultrasonography of Right Heart (ICD-10-PCS; 2018-08-13)
DX: A41.9 Sepsis, unspecified organism (principal); R65.21 Severe sepsis with septic shock; N17.0 Acute kidney failure with tubular necrosis; E43 Unspecified severe protein-calorie malnutrition; G93.41 Metabolic encephalopathy; E87.2 Acidosis; N12 Tubulo-interstitial nephritis, not specified as acute or chronic; N25.81 Secondary hyperparathyroidism of renal origin; B96.20 Unspecified Escherichia coli [E. coli] as the cause of diseases classified elsewhere; B96.5 Pseudomonas (aeruginosa) (mallei) (pseudomallei) as the cause of diseases classified elsewhere; E11.40 Type 2 diabetes mellitus with diabetic neuropathy, unspecified; E11.65 Type 2 diabetes mellitus with hyperglycemia; E55.9 Vitamin D deficiency, unspecified; E78.5 Hyperlipidemia, unspecified; F32.9 Major depressive disorder, single episode, unspecified; R31.9 Hematuria, unspecified; K59.00 Constipation, unspecified; G20 Parkinson's disease; M81.0 Age-related osteoporosis without current pathological fracture; M85.80 Other specified disorders of bone density and structure, unspecified site; Z87.442 Personal history of urinary calculi; Z88.0 Allergy status to penicillin; Z88.5 Allergy status to narcotic agent; Z68.30 Body mass index [BMI] 30.0-30.9, adult; Z79.84 Long term (current) use of oral hypoglycemic drugs; Z79.899 Other long term (current) drug therapy
CPT/HCPCS: 36415; 36556; 71045; 74176; 80048; 80053; 80061; 81001; 82306; 82962; 83036; 83605; 83735; 83970; 84145; 84439; 84443; 84484; 85025; 85610; 87040; 87077; 87081; 87086; 87186; 90656; 96365; 96366; 96368; 96372; 96375; G0378; J0696; J1335; J1644; J2185; J3370; J1815; J7030; J7050

== ENCOUNTER 2019-10-09 12:44 | Inpatient (IN) | payer MEDICARE, MEDICAID ==
[~2019-10-09] VITALS: Ht 154.9 cm; Wt 61.5 kg
[~2019-10-09 12:44] MED LIST changes: -ACET325C5 PO; +ACET325C6 PO; +ALEN70TA6 PO; -CALC500T PO; +CALC500T29 PO; +CIPR500T3 PO; +DOCU-131 PO; +FLUC200T PO; +HYDR-3237 PO; +MERO1VIA IV; +SENN-177 PO
[2019-10-09 14:06] LABS: BASOPHILS # (AUTO) 0.03 x10^3/uL (0-0.1); BASOPHILS % (AUTO) 0 % (0-1); EOSINOPHILS # (AUTO) 0.32 x10^3/uL (0-0.4); EOSINOPHILS % (AUTO) 3 % (1-7); LYMPHOCYTES # (AUTO) 4.31 x10^3/uL (1-3.4); LYMPHOCYTES % (AUTO) 36 % (22-44); MD NO; MEAN CORPUSCULAR HEMOGLOBIN 31.2 pg (27.0-34.8); MEAN CORPUSCULAR HGB CONC 32.5 g/dL (32.4-35.8); MEAN CORPUSCULAR VOLUME 95.8 fL (80-100); MEAN PLATELET VOLUME 7.3 fL (7.4-10.4); MONOCYTES % (AUTO) 6 % (2-9); NEUTROPHILS # (AUTO) 6.48 x10^3/uL (1.8-6.8); NEUTROPHILS % (AUTO) 55 % (42-75); PLATELET COUNT 336 x10^3/uL (130-400); RED BLOOD COUNT 4.19 x10^6/uL (3.82-5.3); RED CELL DISTRIBUTION WIDTH 15.5 % (9.6-15.2)
[2019-10-09 14:16] LABS: ANION GAP 6 mmol/L (5-15); CALCIUM 8.4 mg/dL (8.5-10.1); CHLORIDE 107 mmol/L (98-107); CREATININE 1.01 mg/dL (0.55-1.02)
--- NOTE | 2019-10-09 14:23 | NUR ---
lab records from [facility] requested @[id number]
--- NOTE | 2019-10-09 15:04 | NUR ---
PERIPHERAL IV STARTED, SECOND SET OF BLOOD CULTURES DRAWN, WALKED CULTURES AND STRAIGHT CATH UA BACK TO LAB.
--- NOTE | 2019-10-09 15:10 | NUR ---
PRECEPTOR RN: YELLOW SLIP SENT TO LAB FOR ABX
[2019-10-09 15:22] LABS: MICROSCOPIC INDICATED
[2019-10-09 15:23] LABS: CULTURE INDICATED? YES
[2019-10-09] MEDS ORDERED: MEROPENEM 1 GM in SODIUM CHLORIDE 0.9% 100 ML IV ONE (15:30)
--- NOTE | 2019-10-09 15:34 | NUR ---
THIS IS A 79 YO FEMALE COMING IN FOR "HER DR. YOON CH SENT UP FOR IV ANTIBIOTICS FOR INFECTION". FAMILY DOES NOT KNOW WHAT INFECTION OR ABX. PATIENT IS NONAMBULATORY AND SPEAKS PAS[place] ONLY, ACCOMPANIED BY [place] SPEAKING RELATIVE WHOM PATIENT LIVES WITH. PATIENT HAS HX OF FREQUENT UTI'S AND DIABETES. PLACED ON CONTINUOUS SPO2 AT 96%, CYCLE BP Q1HR. CALL LIGHT IN BED. DENIES NEEDS AT THIS TIME.
--- NOTE | 2019-10-09 15:40 | NUR ---
PATIENT MEDICATED PER EMAR, TOLERATED WELL. FAMILY AT BEDSIDE. CALL LIGHT IN REACH Addendum: 10/09/19 at 1559 by KULWANT TWO SETS OF CULTURES DRAW PRIOR TO ABX ADMINISTRATION.
[2019-10-09 16:00] VITALS: BP 110/48
[2019-10-09] MEDS ORDERED: ACETAMINOPHEN 325 MG TABLET PO PRN (16:00)
--- NOTE | 2019-10-09 16:15 | NUR ---
NO SIGNS OR SYMPTOMS OF ABX REACTION, PATIENT RESTING COMFORTABLY, NAD, VSS, FAMILY IN ROOM. DENIES NEEDS AT THIS TIME. AWAITING BED ASSIGNMENT.
--- NOTE | 2019-10-09 16:22 | NUR ---
REPORT GIVEN TO DONITA ARREOLA. PLAN OF CARE DISCUSSED.
[2019-10-09] MEDS ORDERED: SENNA/DOCUSATE TABLET PO PRN (16:30)
[2019-10-09] MEDS ORDERED: DOCUSATE 100 MG CAPSULE PO PRN (16:30)
[2019-10-09] MEDS: GEMFIBROZIL 600 MG TABLET PO SCH (18:41)
[2019-10-09] MEDS: ENOXAPARIN 30 MG/0.3 ML SQ SCH (20:09)
[2019-10-09] MEDS: GABAPENTIN 300 MG CAPSULE PO SCH (20:09)
[2019-10-09] MEDS: INSULIN LISPRO 100 UNITS/ML, PEN SQ-INSULIN SCH (20:12)
[2019-10-09] MEDS: CARBIDOPA HOMEMEDPO SCH (20:12)
[2019-10-09] MEDS: LEVODOPA HOMEMEDPO SCH (20:12)
[2019-10-09 20:44] VITALS: BP 140/53
[2019-10-09 23:13] VITALS: BP 129/50
[2019-10-09] MEDS: MEROPENEM 1 GM in SODIUM CHLORIDE 0.9% 100 ML IV SCH (23:33)
[2019-10-10 05:47] LABS: BASOPHILS # (AUTO) 0.04 x10^3/uL (0-0.1); BASOPHILS % (AUTO) 1 % (0-1); EOSINOPHILS % (AUTO) 5 % (1-7); LYMPHOCYTES # (AUTO) 4.12 x10^3/uL (1-3.4); LYMPHOCYTES % (AUTO) 52 % (22-44); MD NO; MEAN CORPUSCULAR HEMOGLOBIN 30.4 pg (27.0-34.8); MEAN CORPUSCULAR HGB CONC 32.4 g/dL (32.4-35.8); MEAN CORPUSCULAR VOLUME 93.8 fL (80-100); MEAN PLATELET VOLUME 7.2 fL (7.4-10.4); MONOCYTES % (AUTO) 10 % (2-9); NEUTROPHILS % (AUTO) 33 % (42-75); PLATELET COUNT 294 x10^3/uL (130-400); RED BLOOD COUNT 3.88 x10^6/uL (3.82-5.3); RED CELL DISTRIBUTION WIDTH 15.5 % (9.6-15.2)
[2019-10-10] MEDS: CALCIUM CARBONATE 500 MG TABLET PO SCH (05:54)
[2019-10-10 05:58] LABS: ANION GAP 5 mmol/L (5-15); CALCIUM 8.2 mg/dL (8.5-10.1); CHLORIDE 111 mmol/L (98-107)
[2019-10-10] MEDS ORDERED: ALENDRONATE 70 MG TABLET PO SCH (06:30)
[2019-10-10] MEDS: INSULIN LISPRO 100 UNITS/ML, PEN SQ-INSULIN SCH ×4 (07:00→22:09)
[2019-10-10 07:15] VITALS: BP 104/65
[2019-10-10] MEDS: CARBIDOPA HOMEMEDPO SCH ×3 (09:00→21:00)
[2019-10-10] MEDS: LEVODOPA HOMEMEDPO SCH ×3 (09:00→21:00)
[2019-10-10] MEDS: MEROPENEM 1 GM in SODIUM CHLORIDE 0.9% 100 ML IV SCH ×2 (10:56→22:09)
[2019-10-10] MEDS: CITALOPRAM 20 MG TABLET PO SCH (10:56)
[2019-10-10] MEDS: GABAPENTIN 300 MG CAPSULE PO SCH ×3 (10:56→22:09)
[2019-10-10] MEDS: CYANOCOBALAMIN 1,000 MCG TABLET PO SCH (10:57)
[2019-10-10] MEDS: CHOLECALCIFEROL 1,000 UNIT TABLET PO SCH (10:57)
[2019-10-10] MEDS: OMEPRAZOLE 20 MG CAPSULE.DR PO SCH (10:57)
[2019-10-10] MEDS: GEMFIBROZIL 600 MG TABLET PO SCH ×2 (11:13→18:25)
[2019-10-10] MEDS: ENOXAPARIN 30 MG/0.3 ML SQ SCH ×2 (11:14→22:10)
[2019-10-10 14:04] VITALS: BP 108/67
[2019-10-10 19:45] VITALS: BP 110/62
[2019-10-11 00:59] VITALS: BP 105/47
[2019-10-11] MEDS: CALCIUM CARBONATE 500 MG TABLET PO SCH (06:26)
[2019-10-11] MEDS: INSULIN LISPRO 100 UNITS/ML, PEN SQ-INSULIN SCH ×4 (07:00→21:00)
[2019-10-11 07:21] VITALS: BP 104/56
[2019-10-11] MEDS: CARBIDOPA HOMEMEDPO SCH ×3 (09:00→21:00)
[2019-10-11] MEDS: LEVODOPA HOMEMEDPO SCH ×3 (09:00→21:00)
[2019-10-11] MEDS: CHOLECALCIFEROL 1,000 UNIT TABLET PO SCH (10:27)
[2019-10-11] MEDS: CITALOPRAM 20 MG TABLET PO SCH (10:27)
[2019-10-11] MEDS: GEMFIBROZIL 600 MG TABLET PO SCH ×2 (10:27→16:30)
[2019-10-11] MEDS: ENOXAPARIN 30 MG/0.3 ML SQ SCH ×2 (10:27→21:11)
[2019-10-11] MEDS: OMEPRAZOLE 20 MG CAPSULE.DR PO SCH (10:27)
[2019-10-11] MEDS: GABAPENTIN 300 MG CAPSULE PO SCH ×3 (10:27→21:11)
[2019-10-11] MEDS: CYANOCOBALAMIN 1,000 MCG TABLET PO SCH (10:27)
[2019-10-11] MEDS: MEROPENEM 1 GM in SODIUM CHLORIDE 0.9% 100 ML IV SCH ×2 (13:34→23:58)
[2019-10-11 14:29] VITALS: BP 132/74
[2019-10-11] MEDS: LINEZOLID PMX 600MG/300ML 300 ML IV SCH (18:55)
[2019-10-11 20:06] VITALS: BP 134/60
[2019-10-12 02:00] VITALS: BP 146/76
[2019-10-12] MEDS: LINEZOLID PMX 600MG/300ML 300 ML IV SCH ×2 (02:31→14:36)
[2019-10-12] MEDS: CALCIUM CARBONATE 500 MG TABLET PO SCH (05:58)
[2019-10-12] MEDS: INSULIN LISPRO 100 UNITS/ML, PEN SQ-INSULIN SCH ×4 (07:00→19:46)
[2019-10-12] MEDS: OMEPRAZOLE 20 MG CAPSULE.DR PO SCH (07:58)
[2019-10-12] MEDS: GEMFIBROZIL 600 MG TABLET PO SCH ×2 (07:59→17:04)
[2019-10-12] MEDS: CHOLECALCIFEROL 1,000 UNIT TABLET PO SCH (08:01)
[2019-10-12] MEDS: CITALOPRAM 20 MG TABLET PO SCH (08:01)
[2019-10-12] MEDS: GABAPENTIN 300 MG CAPSULE PO SCH ×3 (08:01→22:15)
[2019-10-12] MEDS: LEVODOPA HOMEMEDPO SCH ×3 (08:02→21:00)
[2019-10-12] MEDS: CARBIDOPA HOMEMEDPO SCH ×3 (08:02→21:00)
[2019-10-12] MEDS: ENOXAPARIN 30 MG/0.3 ML SQ SCH ×2 (08:02→22:15)
[2019-10-12] MEDS: CYANOCOBALAMIN 1,000 MCG TABLET PO SCH (08:02)
[2019-10-12 09:05] VITALS: BP 125/62
[2019-10-12] MEDS: MEROPENEM 1 GM in SODIUM CHLORIDE 0.9% 100 ML IV SCH (12:01)
[2019-10-12 14:27] VITALS: BP 148/84
[2019-10-12 15:52] VITALS: BP 118/53
[2019-10-12 19:50] VITALS: BP 104/48
[2019-10-13] MEDS: MEROPENEM 1 GM in SODIUM CHLORIDE 0.9% 100 ML IV SCH ×2 (00:03→12:37)
[2019-10-13 00:07] VITALS: BP 111/51
[2019-10-13] MEDS: LINEZOLID PMX 600MG/300ML 300 ML IV SCH ×2 (02:43→14:47)
[2019-10-13] MEDS: CALCIUM CARBONATE 500 MG TABLET PO SCH (05:30)
[2019-10-13 06:05] VITALS: BP 121/56
[2019-10-13] MEDS: INSULIN LISPRO 100 UNITS/ML, PEN SQ-INSULIN SCH ×4 (07:00→21:00)
[2019-10-13] MEDS: GABAPENTIN 300 MG CAPSULE PO SCH ×3 (08:49→21:11)
[2019-10-13] MEDS: OMEPRAZOLE 20 MG CAPSULE.DR PO SCH (08:49)
[2019-10-13] MEDS: CYANOCOBALAMIN 1,000 MCG TABLET PO SCH (08:49)
[2019-10-13] MEDS: GEMFIBROZIL 600 MG TABLET PO SCH ×2 (08:49→16:42)
[2019-10-13] MEDS: CHOLECALCIFEROL 1,000 UNIT TABLET PO SCH (08:49)
[2019-10-13] MEDS: ENOXAPARIN 30 MG/0.3 ML SQ SCH ×2 (08:50→21:11)
[2019-10-13] MEDS: CARBIDOPA HOMEMEDPO SCH ×3 (08:50→21:00)
[2019-10-13] MEDS: LEVODOPA HOMEMEDPO SCH ×3 (08:50→21:00)
[2019-10-13] MEDS: CITALOPRAM 20 MG TABLET PO SCH (08:50)
[2019-10-13 15:00] VITALS: BP 115/52
[2019-10-13 21:12] VITALS: BP 127/57
[2019-10-14] MEDS: MEROPENEM 1 GM in SODIUM CHLORIDE 0.9% 100 ML IV SCH ×2 (00:29→12:24)
[2019-10-14 00:32] VITALS: BP 118/60
[2019-10-14] MEDS: LINEZOLID PMX 600MG/300ML 300 ML IV SCH ×2 (02:25→14:18)
[2019-10-14] MEDS: CALCIUM CARBONATE 500 MG TABLET PO SCH (06:24)
[2019-10-14] MEDS: INSULIN LISPRO 100 UNITS/ML, PEN SQ-INSULIN SCH ×3 (07:00→16:31)
[2019-10-14] MEDS: GEMFIBROZIL 600 MG TABLET PO SCH ×2 (07:30→16:31)
[2019-10-14] MEDS: OMEPRAZOLE 20 MG CAPSULE.DR PO SCH (07:30)
[2019-10-14 08:54] VITALS: BP 115/52
[2019-10-14] MEDS: CHOLECALCIFEROL 1,000 UNIT TABLET PO SCH (12:23)
[2019-10-14] MEDS: CYANOCOBALAMIN 1,000 MCG TABLET PO SCH (12:23)
[2019-10-14] MEDS: GABAPENTIN 300 MG CAPSULE PO SCH ×2 (12:23→16:13)
[2019-10-14] MEDS: CARBIDOPA HOMEMEDPO SCH ×2 (12:24→16:00)
[2019-10-14] MEDS: LEVODOPA HOMEMEDPO SCH ×2 (12:24→16:00)
[2019-10-14] MEDS: ENOXAPARIN 30 MG/0.3 ML SQ SCH (12:24)
[2019-10-14] MEDS: CITALOPRAM 20 MG TABLET PO SCH (12:24)
[2019-10-14 14:03] VITALS: BP 111/48
== END 2019-10-14 18:28 | disposition home health service (06) | DRG 690 ==
LOC: ED 14:03 → INTOOBSV 15:07 → EDIP 15:07 → 3N 15:58 → OBSVTOIN 10-10 11:37
PROVIDERS: ADMIT Hospitalist; ATTEND Hospitalist
PROC: 0T9B70Z Drainage of Bladder with Drainage Device, Via Natural or Artificial Opening (ICD-10-PCS; principal; 2019-10-09)
DX: N30.90 Cystitis, unspecified without hematuria (principal); Z16.12 Extended spectrum beta lactamase (ESBL) resistance; B96.20 Unspecified Escherichia coli [E. coli] as the cause of diseases classified elsewhere; E11.40 Type 2 diabetes mellitus with diabetic neuropathy, unspecified; E78.5 Hyperlipidemia, unspecified; F02.80 Dementia in other diseases classified elsewhere, unspecified severity, without behavioral disturbance, psychotic disturbance, mood disturbance, and anxiety; G30.1 Alzheimer's disease with late onset; B96.1 Klebsiella pneumoniae [K. pneumoniae] as the cause of diseases classified elsewhere; G20 Parkinson's disease; K21.9 Gastro-esophageal reflux disease without esophagitis; M81.0 Age-related osteoporosis without current pathological fracture; Z83.3 Family history of diabetes mellitus; Z85.72 Personal history of non-Hodgkin lymphomas; Z87.440 Personal history of urinary (tract) infections; Z88.0 Allergy status to penicillin; Z99.3 Dependence on wheelchair; Z90.49 Acquired absence of other specified parts of digestive tract; Z88.5 Allergy status to narcotic agent; Z79.84 Long term (current) use of oral hypoglycemic drugs; Z79.899 Other long term (current) drug therapy; B95.2 Enterococcus as the cause of diseases classified elsewhere
CPT/HCPCS: 36415; 80048; 81001; 82040; 82962; 83605; 85025; 87040; 87077; 87086; 87186; 96365; 96375; G0378; J1650; J2020; J2185; J1815